=== PATIENT | male | born 1940 | race Hispanic/Latino ===

== ENCOUNTER 2016-08-14 07:30 | Day surgery (SDC) | payer MEDICARE, OTHER ==
[2016-08-14] MEDS ORDERED: NACL 0.9% 1000 ML 1,000 ML ONE (07:48)
[2016-08-14] MEDS ORDERED: ECOTRIN PO ONE ×2 (07:55→08:07)
[2016-08-14] MEDS ORDERED: NACL 0.9% 1000 ML 1,000 ML IV SCH (09:00)
[2016-08-14] MEDS ORDERED: HEPARIN 10,000 UNITS/10 ML ONE (09:55)
[2016-08-14] MEDS ORDERED: CALAN ONE (09:55)
[2016-08-14] MEDS ORDERED: VERSED ONE (09:55)
[2016-08-14] MEDS ORDERED: HEPARIN/NS 5000 UNIT/500ML(CATH LAB) 1,000 ML IR ONE (09:55)
[2016-08-14] MEDS ORDERED: NITROGLYCERIN SYRINGE 3 ML ONE (09:55)
[2016-08-14] MEDS ORDERED: SUBLIMAZE ONE (09:55)
[2016-08-14] MEDS ORDERED: XYLOCAINE 2% INFILTRATI ONE (09:55)
--- NOTE | 2016-08-14 10:44 | Short Stay Summary ---
Short Stay Documentation Date of service: 08/14/16 - History H&P: obtained from office - Allergies and Medications Current Medications: Allergies amlodipine besylate [From [facility]] Adverse Reaction (Verified 08/14/16 08:07) Unknown metronidazole [From [facility]] Adverse Reaction (Verified 08/14/16 08:07) Swelling prednisone Adverse Reaction (Verified 08/14/16 08:07) Swelling Home Medications Medication Instructions Recorded Confirmed Last Taken Type ALPRAZolam [Alprazolam] 0.5 mg PO TID 08/14/16 08/14/16 08/14/16 05:00 History Aspirin EC [Aspirin Enteric Coated 81 mg PO QDAY 08/14/16 08/14/16 08/12/16 History TAB] Atenolol [Atenolol] 25 mg PO QDAY 08/14/16 08/14/16 08/14/16 05:00 History ISOSORBIDE MONOnitrate [Imdur ER] 30 mg PO DAILY 08/14/16 08/14/16 08/14/16 05: 00 History Lisinopril/Hydrochlorothiazide 1 tab PO BID 08/14/16 08/14/16 08/13/16 History [Lisinopril-Hctz 20-12.5 mg Tab] Multivitamin Tab [Multiple Vitamin 1 each PO QDAY 08/14/16 08/14/16 08/13/16 History TAB (Theragran)] [place] Fatty Acids/Fish Oil [Fish 1,000 mg PO BID 08/14/16 08/14/16 08/13/16 History Oil] Simvastatin [Zocor TAB] 20 mg PO QHS 08/14/16 08/14/16 08/13/16 History Timolol 0.5% 1 drop OU AMHY 08/14/16 08/14/16 08/13/16 History Active Medications Sodium Chloride (Nacl 0.9% 1000 Ml) 1,000 mls @ 100 mls/hr IV DIRECT VANESSA Last Admin: 08/14/16 08:17 Dose: 100 mls/hr - Brief post op/procedure progress note Date of procedure: 08/14/16 Pre-op diagnosis: sob Post-op diagnosis: same Procedure: see report Anesthesia: local Estimated blood loss: none Pathology: none - Disposition Condition at discharge: Good Disposition: DISCHARGED TO HOME OR SELFCARE - Discharge Diagnoses (1) Hypertension Status: Chronic Qualifiers: Hypertension type: essential hypertension Qualified Code(s): I10 - Essential (primary) hypertension (2) Hyperlipemia, mixed Status: Chronic (3) SOB (shortness of breath) on exertion Status: Chronic (4) Renal insufficiency, mild Status: Chronic Short Stay Discharge Plan Activity: advance as tolerated Diet: low fat, low cholesterol, low salt Wound: keep clean and dry Follow up with: INEZ DUMONT MD [Primary Care Provider] - 7 Days
--- NOTE | 2016-08-14 11:15 | Cardiac Catherization Report ---
LEFT HEART CATHETERIZATION CLINICAL INFORMATION: A 76-year-old gentleman with persistent shortness of breath with exertion, hypertension, mild renal insufficiency and hyperlipidemia. In view of recurrent symptoms despite negative stress test done 18 months ago, he is here for left heart catheterization. Left heart catheterization performed via the right radial artery, sterile technique, local anesthesia, 6-Sammarinese radial sheath inserted. Left system engaged with a JL3.5 catheter. FINDINGS: Left main is large and patent, bifurcates into large LAD that is patent from proximally and distally. Diagonal 1 and diagonal 2 are small caliber vessels that are patent. Circumflex is a large dominant vessel, patent AV groove. OM1 and OM2 are large caliber vessel with moderate tortuosity, patent. LV gram done in the HILARIA and MATHEWS view shows normal LV function, EF 60%. LVEDP of 20-23 mmHg, LV is 125, aortic is 121/51. No gradient across the aortic valve on pullback. RCA engaged with JR4 catheter, is a small nondominant vessel, patent. 5-Sammarinese catheters were taken over a guidewire, 6-Sammarinese radial sheath was discontinued. Radial dressing applied. No hematoma. No bleeding. SUMMARY: 1. Patent normal coronaries, left dominant system, normal left end-diastolic pressure with normal LV function. 2. Continue risk factor modification. JOB# [id number] CHALINO/ALEK
[2016-08-14 13:03] VITALS: BP 147/67
== END 2016-08-14 13:20 | disposition home or self-care (01) ==
LOC: OPU 07:30
PROVIDERS: ATTEND Internal Medicine
DX: R06.02 Shortness of breath (principal); I10 Essential (primary) hypertension; E78.2 Mixed hyperlipidemia; E86.0 Dehydration; Z79.899 Other long term (current) drug therapy; Z87.891 Personal history of nicotine dependence; Z79.82 Long term (current) use of aspirin; Z82.49 Family history of ischemic heart disease and other diseases of the circulatory system
CPT/HCPCS: 93005; 93010; 93458; 96360; 96361; C1894; J1644; J2250; J3010; J7030; Q9967